=== PATIENT | male | born 1970 | race Caucasian/White ===

== ENCOUNTER 2020-07-22 12:10 | Emergency (ER) | payer MEDICARE ==
[~2020-07-22 12:10] MED LIST: IBUPROFEN600 MG PO; NORCO 5-325 TA1 EACH PO; PERCOCET 5/325 T1 EA PO
[2020-07-22 13:00] LABS: HEMOGLOBIN 15.7 gm/dl (14.0-17.5); RED BLOOD COUNT 5.32 M/UL (4.20-5.50); WHITE BLOOD COUNT 5.2 K/UL (4.5-11.0)
[2020-07-22 13:28] LABS: BUN/CREATININE RATIO 15 (0-10)
== END 2020-07-22 14:57 | disposition home or self-care (01) ==
LOC: ER1 12:10
PROVIDERS: Physician Assistant Medical
DX: I10 Essential (primary) hypertension (principal); R51.9 Headache, unspecified; M50.30 Other cervical disc degeneration, unspecified cervical region
CPT/HCPCS: 70450; 71045; 72125; 80053; 81001; 82550; 82553; 83874; 84484; 85025; 93005; 99284

== ENCOUNTER → 2020-08-29 | Outpatient (CLI) | payer MEDICARE | LOC: ECHO 11:28 → NM 15:00 | DX: R06.02 Shortness of breath (principal) | CPT/HCPCS: ECHO; 93017; 93306 ==

== ENCOUNTER → 2020-09-21 | Outpatient (CLI) | payer MEDICARE | LOC: HEART 5 14:48 | DX: R42 Dizziness and giddiness (principal) ==

== ENCOUNTER → 2021-08-15 | Outpatient (CLI) | payer MEDICARE | LOC: EXRD 08:49 | DX: J20.9 Acute bronchitis, unspecified (principal) | CPT/HCPCS: 71046 ==